=== PATIENT | male | born 1970 | race Caucasian/White ===

== ENCOUNTER 2016-11-26 10:09 | Emergency (ER) | payer SELFPAY ==
[2016-11-26] MEDS ORDERED: Nitroglycerin 0.4 MG Tab.SL ONE (10:18)
[2016-11-26] MEDS: Nitroglycerin 0.4 MG Tab.SL SL PRN ×3 (10:18→10:30)
[2016-11-26] MEDS ORDERED: Aspirin 81 MG Tab.Chew ONE (10:18)
[2016-11-26] MEDS ORDERED: Morphine 2 MG/ML Syringe IVPUSH ONE ×3 (10:24→12:50)
[2016-11-26] MEDS ORDERED: Aspirin 81 MG Tab.Chew PO ONE (10:24)
[2016-11-26] MEDS ORDERED: Sodium Chloride 0.9% 10 ML Syringe FLUSH PRN ×2 (10:24)
[2016-11-26] MEDS ORDERED: Sodium Chloride 0.9% 2.5 ML Syringe FLUSH PRN ×2 (10:24)
[2016-11-26] MEDS ORDERED: Ondansetron 4 MG/2 ML SDV IVPUSH ONE (10:36)
--- NOTE | 2016-11-26 10:36 | EDM.PDOC ---
ED HPI GENERAL MEDICAL PROBLEM - General Chief Complaint: Chest Pain Stated Complaint: CHEST PAINS Time Seen by Provider: 11/26/16 10:22 Source of Information: Reports: Patient History Limitations: Reports: No Limitations - History of Present Illness INITIAL COMMENTS - FREE TEXT/NARRATIVE: Resents from the [facility] with an officer. The patient states that about 2:30am he began to have chest pain precordially radiating up to his left neck and shoulder and down the left arm. He previously has had chest pain and had two stents placed. Within the last 6 weeks he has had an angiogram, no stents were placed but his food processing scientist back in [place] told him that he had "a 60-70% blockage just where the arteries go into the heart". Since his stents where placed he has had intermittent episodes of chest pain, each time going to the emergency room where he was "given medication". On this occasion, he was awoken with a cold sweat, SOB, left arm numbness and chest pain about 2:30 this morning and then laid in his [facility] bunk until this morning when he banged on his door and asked for medication. He was given his medication but his pain worsened and was accompanied by sweating, nausea and apprehension along with drooling and thus he was promptly transported to the ER. On arrival he states his pain is a 10 out of 10 in the precordial area radiating to the left neck, shoulder and left arm. His blood pressure had been elevated at the [facility] [id number]. The patient states he has been under considerable stress last week. He was living in [place] when his girlfriend came up from [facility]. She was with him 1 day and dropped over in his apartment. When EMS and the police came to investigate they found that he had an outstanding warrant for failure to appear and thus he was jailed. chest Pain Score (Numeric/FACES): 10 - Related Data Allergies Allergy/AdvReac Type Severity Reaction Status Date / Time Penicillins Allergy Swelling Verified 11/26/16 10:20 Home Meds: Home Meds Albuterol [Ventolin HFA] 1 puff INH Q6H PRN #1 inhaler 04/14/15 [Rx] Insulin Glarg,Human.Rec.Analog [Lantus] 15 units SQ BID 01/01/16 [History] Aspirin 81 mg PO DAILY 11/26/16 [History] Clopidogrel [Plavix] 75 mg PO DAILY 11/26/16 [History] Isosorbide Mononitrate [Imdur] 30 mg PO DAILY 11/26/16 [History] Metoprolol Succinate [Toprol XL] 25 mg PO BID 11/26/16 [History] Ranolazine [Ranexa] 1,000 mg PO BID 11/26/16 [History] atorvaSTATin [Lipitor] 40 mg PO DAILY 11/26/16 [History] Past Medical History - Past Health History Medical/Surgical History: Denies Medical/Surgical History HEENT History: Reports: None Cardiovascular History: Reports: CAD, Hypertension, Stents Other Cardiovascular History: CAD Respiratory History: Reports: Other (See Below) Other Respiratory History: Pneumonia Gastrointestinal History: Reports: None Genitourinary History: Reports: None Musculoskeletal History: Reports: None Other Musculoskeletal History: leg surgery from spider bite - 2011 Psychiatric History: Reports: None Endocrine/Metabolic History: Reports: Diabetes, Type II Hematologic History: Reports: None Dermatologic History: Reports: None - Infectious Disease History Infectious Disease History: Reports: Chicken Pox - Past Surgical History Other Cardiovascular Surgeries/Procedures: states 2 stents 10 mos ago Respiratory Surgical History: Reports: Thoracentesis Social & Family History - Family History Family Medical History: Noncontributory Cardiac: Reports: None, Hypertension, OR, Other (See Below) Other Cardiac Family History: heart attack Respiratory: Reports: None GI: Reports: None Neurological: Reports: Other (See Below) Other Neurological Family History: stroke Psychiatric: Reports: None Endocrine/Metabolic: Reports: Diabetes, type II Immunologic: Reports: None Dermatologic: Reports: None Oncologic: Reports: Breast - Tobacco Use Smoking Status *Q: Current Every Day Smoker Years of Tobacco use: 20 Packs/Tins Daily: 1 Used Tobacco, but Quit: No Second Hand Smoke Exposure: Yes - Alcohol Use Days Per Week of Alcohol Use: 4 Number of Drinks Per Day: 4 Total Drinks Per Week: 16 - Recreational Drug Use Recreational Drug Use: Yes Drug Use in Last 12 Months: Yes Recreational Drug Type: Reports: Marijuana/Hashish Recreational Drug Use Frequency: Monthly Recreational Drug Last Use: 05/11/15 ED ROS GENERAL - Review of Systems Review Of Systems: See Below Constitutional: Denies: Fever, Chills HEENT: Reports: No Symptoms Respiratory: Reports: Shortness of Breath Cardiovascular: Reports: Chest Pain, Blood Pressure Problem Endocrine: Reports: No Symptoms GI/Abdominal: Reports: Nausea : Reports: No Symptoms Musculoskeletal: Reports: No Symptoms Skin: Reports: No Symptoms Neurological: Reports: No Symptoms Psychiatric: Reports: Anxiety Hematologic/Lymphatic: Reports: No Symptoms Immunologic: Reports: No Symptoms ED EXAM, GENERAL - Physical Exam Exam: See Below Exam Limited By: Other (anxiety and apprehension) General Appearance: Alert, Moderate Distress (due to pain and anxiety) Ears: Normal External Exam Nose: Normal Inspection Throat/Mouth: Normal Inspection Head: Atraumatic, Normocephalic Neck: Normal Inspection Respiratory/Chest: No Respiratory Distress, No Accessory Muscle Use, Wheezing ( Faint scattered) Cardiovascular: Normal Peripheral Pulses, Regular Rate, Rhythm, No Edema GI/Abdominal: Soft Back Exam: Normal Inspection Extremities: Normal Inspection Neurological: Alert, Oriented, No Motor/Sensory Deficits Psychiatric: Anxious Skin Exam: Warm, Dry, Intact, Normal Color, No Rash Lymphatic: No Adenopathy Course - Vital Signs Last Recorded V/S: Last Vital Signs Temp 36.4 C 11/26/16 10:21 Pulse 64 11/26/16 10:21 Resp 24 H 11/26/16 10:21 BP 202/121 H 11/26/16 10:21 Pulse Ox 97 11/26/16 10:21 - Orders/Labs/Meds Orders: Active Orders 24 hr Category Date Time Status EKG Documentation Completion [RC] STAT Care 11/26/16 10:24 Ordered Oxygen Therapy [RC] ASDIRECTED Care 11/26/16 10:24 Ordered Chest 1V Frontal [CR] Stat Exams 11/26/16 10:24 Ordered CBC WITH AUTO DIFF [HEME] Stat Lab 11/26/16 10:24 Ordered COMPREHENSIVE METABOLIC PN,CMP [CHEM] Stat Lab 11/26/16 10:24 Ordered TROPONIN I [CHEM] Stat Lab 11/26/16 10:24 Ordered Nitroglycerin [Nitrostat] Med 11/26/16 10:24 Ordered 0.4 mg SL Q5M PRN Sodium Chloride 0.9% [Saline Flush] Med 11/26/16 10:24 Ordered 10 ml FLUSH ASDIRECTED PRN Sodium Chloride 0.9% [Saline Flush] Med 11/26/16 10:24 Ordered 10 ml FLUSH ASDIRECTED PRN Sodium Chloride 0.9% [Saline Flush] Med 11/26/16 10:24 Ordered 2.5 ml FLUSH ASDIRECTED PRN Sodium Chloride 0.9% [Saline Flush] Med 11/26/16 10:24 Ordered 2.5 ml FLUSH ASDIRECTED PRN Saline Lock Insert [OM.PC] Stat Oth 11/26/16 10:24 Ordered Medication Orders Nitroglycerin (Nitrostat) 0.4 mg SL Q5M PRN PRN Reason: Chest Pain Stop: 11/26/16 10:35 Sodium Chloride (Saline Flush) 10 ml FLUSH ASDIRECTED PRN PRN Reason: Keep Vein Open Sodium Chloride (Saline Flush) 2.5 ml FLUSH ASDIRECTED PRN PRN Reason: Keep Vein Open Sodium Chloride (Saline Flush) 10 ml FLUSH ASDIRECTED PRN PRN Reason: Keep Vein Open Sodium Chloride (Saline Flush) 2.5 ml FLUSH ASDIRECTED PRN PRN Reason: Keep Vein Open Meds: Medications Generic Name Dose Route Start Last Admin Trade Name Freq PRN Reason Stop Dose Admin Nitroglycerin 0.4 mg 11/26/16 10:24 Nitrostat SL 11/26/16 10:35 Q5M PRN Chest Pain Sodium Chloride 10 ml 11/26/16 10:24 Saline Flush FLUSH ASDIRECTED PRN Keep Vein Open Sodium Chloride 2.5 ml 11/26/16 10:24 Saline Flush FLUSH ASDIRECTED PRN Keep Vein Open Sodium Chloride 10 ml 11/26/16 10:24 Saline Flush FLUSH ASDIRECTED PRN Keep Vein Open Sodium Chloride 2.5 ml 11/26/16 10:24 Saline Flush FLUSH ASDIRECTED PRN Keep Vein Open Discontinued Medications Generic Name Dose Route Start Last Admin Trade Name Freq PRN Reason Stop Dose Admin Aspirin Confirm 11/26/16 10:18 Aspirin Administered 11/26/16 10:19 Dose 324 mg .ROUTE .[facility]-MED ONE Aspirin 324 mg 11/26/16 10:24 Aspirin PO 11/26/16 10:25 ONETIME ONE Morphine Sulfate 2 mg 11/26/16 10:24 Morphine IVPUSH 11/26/16 10:25 ONETIME ONE Nitroglycerin Confirm 11/26/16 10:18 Nitrostat Administered 11/26/16 10:19 Dose 0.4 mg .ROUTE .[facility]-MED [facility] - Re-Assessments/Exams Free Text/Narrative Re-Assessment/Exam: 11/26/16 1215 Despite a total of 6 mg of IV morphine, nitroglycerin sublingual and Ativan 1 mg IV the patient continues to complain of chest pain 7 on the 1- 10 scale radiating to the left neck and shoulder as well as some numbness in the left arm. He denies nausea or shortness of breath. He was given oxygen and Zofran IV. The patient has no one coronary artery disease with significant blockages in 3 unstented arteries. Thus he will be transferred to [place] for definitive management. Dr. Candelaria M.D. [facility] was given a full report and agrees to except the patient in transfer. Departure - Departure Time of Disposition: 13:06 Disposition: DC/Tfer to [facility] 02 Reason for Transfer *Q: Other (Continuing chest pain in patient with known CAD) Condition: Fair Clinical Impression: Coronary arteriosclerosis Forms: ED Department Discharge - My Orders Last 24 Hours: My Active Orders 11/26/16 10:24 EKG Documentation Completion [RC] STAT Oxygen Therapy [RC] ASDIRECTED Chest 1V Frontal [CR] Stat CBC WITH AUTO DIFF [HEME] Stat COMPREHENSIVE METABOLIC PN,CMP [CHEM] Stat TROPONIN I [CHEM] Stat Nitroglycerin [Nitrostat] 0.4 mg SL Q5M PRN Sodium Chloride 0.9% [Saline Flush] 10 ml FLUSH ASDIRECTED PRN Sodium Chloride 0.9% [Saline Flush] 10 ml FLUSH ASDIRECTED PRN Sodium Chloride 0.9% [Saline Flush] 2.5 ml FLUSH ASDIRECTED PRN Sodium Chloride 0.9% [Saline Flush] 2.5 ml FLUSH ASDIRECTED PRN Saline Lock Insert [OM.PC] Stat - Assessment/Plan Last 24 Hours: My Active Orders 11/26/16 10:24 EKG Documentation Completion [RC] STAT Oxygen Therapy [RC] ASDIRECTED Chest 1V Frontal [CR] Stat CBC WITH AUTO DIFF [HEME] Stat COMPREHENSIVE METABOLIC PN,CMP [CHEM] Stat TROPONIN I [CHEM] Stat Nitroglycerin [Nitrostat] 0.4 mg SL Q5M PRN Sodium Chloride 0.9% [Saline Flush] 10 ml FLUSH ASDIRECTED PRN Sodium Chloride 0.9% [Saline Flush] 10 ml FLUSH ASDIRECTED PRN Sodium Chloride 0.9% [Saline Flush] 2.5 ml FLUSH ASDIRECTED PRN Sodium Chloride 0.9% [Saline Flush] 2.5 ml FLUSH ASDIRECTED PRN Saline Lock Insert [OM.PC] Stat
[2016-11-26] MEDS ORDERED: Sodium Chloride 0.9% 1,000 ML IV ONE (10:39)
[2016-11-26 10:57] LABS: CHLORIDE,CL 106 mmol/L (98-110); SODIUM,NA 139 mmol/L (136-146)
[2016-11-26] MEDS ORDERED: LORazepam 2 MG/ML MDV IVPUSH ONE ×2 (11:14→12:50)
--- NOTE | 2016-11-26 11:31 | CR ---
EXAMINATION: Portable chest radiograph. HISTORY: Chest pain. FINDINGS: The trachea is midline. The cardiomediastinal silhouette is within normal limits. No pulmonary infil trates, effusions or pneumothorax. Osseous structures appear unremarkable. IMPRESSION: No acute cardiopulmonary process.
[2016-11-26 14:43] VITALS: BP 146/97
== END 2016-11-26 13:22 ==
LOC: MW.ED 10:09
DX: I25.10 Atherosclerotic heart disease of native coronary artery without angina pectoris (principal); I10 Essential (primary) hypertension; E11.9 Type 2 diabetes mellitus without complications; F17.210 Nicotine dependence, cigarettes, uncomplicated; Z88.0 Allergy status to penicillin; Z79.4 Long term (current) use of insulin; Z79.82 Long term (current) use of aspirin; Z79.899 Other long term (current) drug therapy
CPT/HCPCS: 36415; 71010; 80053; 84484; 85025; 93005; 96361; 96374; 96375; 96376; 99285; A9270; J2060; J2270; J2405; J7040